=== PATIENT | male | born 1945 | race Asian ===

== ENCOUNTER 2019-12-18 09:08 | Inpatient (IN) | payer OTHER ==
--- NOTE | 2019-12-18 09:59 | RAD REPORT ---
EXAM DESCRIPTION: CT - Ct Stroke Brain Wo Cont - 12/18/2019 9:48 am CLINICAL HISTORY: Numbness and weakness COMPARISON: None TECHNIQUE: Computed axial tomography of the head was obtained. All CT scans are performed using dose optimization technique as appropriate and may include automated exposure control or mA/KV adjustment according to patient size. FINDINGS: An intracranial bleed is not seen . The ventricles are normal in caliber. No extra-axial fluid collection is noted. Mild to moderate low-density within periventricular, deep and subcortical white matter likely ischemi c changes secondary to small vessel disease Increased density within the left maxillary sinus which is partially calcified may indicate inspissat ed mucus IMPRESSION: No acute intracranial abnormality is seen. If patient's symptoms persist MRI of the bra in would be recommended. Dr Ramirez of the emergency room was notified at 9:52 a.m. December 18, 2019
[2019-12-18 10:04] LABS: Absolute Lymphocytes (CBC) 0.6 K/uL (0.7-4.9); Basophils % 0.3 % (0-1.3); Hematocrit 41.5 % (39.6-49.0); Lymphocytes % 10.2 % (15.3-44.8); MPV 9.5 fL (7.6-11.3); RBC Red Blood Cell Count 4.51 M/uL (4.33-5.43)
[2019-12-18 10:12] LABS: Protime INR 0.99
[2019-12-18 10:28] LABS: Potassium 3.9 mmol/L (3.5-5.1)
--- NOTE | 2019-12-18 10:55 | RAD REPORT ---
EXAM DESCRIPTION: RAD - Chest Single View - 12/18/2019 10:26 am CLINICAL HISTORY: weakness Chest pain. COMPARISON: No comparisons FINDINGS: Portable technique limits examination quality. Emphysematous changes are present throughout the lungs. The heart is upper limit of normal in size. N o displaced fractures. IMPRESSION: Mild COPD.
--- NOTE | 2019-12-18 12:08 | EKG ---
Test Date: 2019-12-18 Test Time: 10:25:54 Alarm Field Technician: BLAYNE MEASUREMENT RESULTS: Intervals: Rate: 76 MT: 156 QRSD: 86 QT: 380 QTc: 427 Flom: P: 60 MT: 156 QRS: 76 T: 62 INTERPRETIVE STATEMENTS: Normal sinus rhythm Early repolarization Normal ECG No previous ECG available for comparison Electronically Signed On 12-18-19 12:08:16 HEEL COVERER MACHINE OPERATOR by Ho Ramesh
--- NOTE | 2019-12-18 12:14 | RAD REPORT ---
EXAM DESCRIPTION: MRI - Brain W/Wo Cont - 12/18/2019 11:59 am CLINICAL HISTORY: Numbness COMPARISON: December 18, [address] TECHNIQUE: Axial, sagittal, and coronal magnetic images of the brain were obtained. 20 cc MultiHance administered intravenously FINDINGS: 14 x 4 millimeter area of abnormal signal is present within the left aspect of the dejuan co nsistent with an acute infarction Mild to moderate signal within periventricular, deep and subcortical white matter likely ischemic nigel nges secondary to small vessel disease. The ventricles are normal in caliber. No abnormal enhancement within the brain is seen. An extra-axial fluid collection is not noted. Fluid within the sinuses/mastoids is not seen IMPRESSION: 14 x 4 millimeter acute infarct left aspect of the dejuan. Exam discussed with Dr Ramirez in the Emergency Room 12:09 p.m. December 18, 2019
--- NOTE | 2019-12-18 12:15 | RAD REPORT ---
EXAM DESCRIPTION: MRI - MRA Neck W/Wo Cont - 12/18/2019 11:59 am CLINICAL HISTORY: Numbness COMPARISON: None. TECHNIQUE: Magnetic resonance angiogram of the neck was performed. Twenty cc MultiHance was administ ered intravenously. 3D MIPS reconstruction performed FINDINGS: The common carotid, internal carotid and external carotid arteries do not demonstrate a si gnificant stenosis. An aneurysm is not seen. The vertebral arteries are codominant without visualization of an abnormality. IMPRESSION: Unremarkable MRA neck NASCET criteria used. Mild 0-49% stenosis Moderate 50-69% stenosis Severe 70-99% stenosis
--- NOTE | 2019-12-18 12:18 | RAD REPORT ---
EXAM DESCRIPTION: MRI - MRA Head Wo Cont - 12/18/2019 11:59 am CLINICAL HISTORY: Numbness COMPARISON: None. TECHNIQUE: Magnetic resonance angiogram was performed. 3D MIPS reconstruction performed FINDINGS: The anterior cerebral, middle cerebral, right posterior cerebral, distal internal carotid and basilar arteries do not demonstrate a significant stenosis. Area of narrowing involves a branch to the left posterior cerebral artery which probably is chronic An aneurysm is not displayed. IMPRESSION: No acute abnormality is displayed
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
--- NOTE | 2019-12-18 13:34 | EDPHYS ---
Physician Documentation [facility] Name: Gerry Holguin Age: 74 yrs Sex: Male : 1945 Arrival Date: 12/18/2019 Time: 09:12 Bed 4 Private MD: Cecilio Humphrey T ED Physician Ramy Ramirez HPI: 12/18 17:23 This 74 yrs old Male presents to ER via Wheelchair with complaints of S/S of kdr Possible Stroke. 17:23 The patient's problem is reported as dysphasia, slow speech, weakness, in the right kdr upper extremity, in the right lower extremity. Onset: The symptoms/episode began/occurred 3:00 AM Wednesday. Duration: This was a single incident, Improving. Context: the episode(s) was witnessed, by no one, symptoms became apparent upon waking, occurred at home, occurred while the patient was asleep. The symptoms are alleviated by nothing. The symptoms are aggravated by nothing. Associated signs and symptoms: Pertinent positives: ataxia, dizziness, lightheadedness, weakness, Pertinent negatives: abdominal pain, agitation, ataxia, diaphoresis, shortness of breath, tingling. Severity of symptoms: At their worst the symptoms were mild in the emergency department the symptoms have improved markedly. Patient's baseline: Neuro: alert and fully oriented, Motor: no deficits, Ambulation: walks without assistance, Speech: normal for age. The patient has not experienced similar symptoms in the past. The patient has not recently seen a physician. The patient has been taking an aspirin every 3-4 hours since initial onset of his symptoms. Historical: - Allergies: 10:09 No Known Allergies; ca1 - Home Meds: 10: metformin 500 mg Oral tab 1 tab 2 times per day [Active]; ca1 - PMHx: 10:09 Diabetes - NIDDM; ca1 - PSHx: 10:09 Appendectomy; ca1 - Immunization history:: Adult Immunizations up to date, Pneumococcal vaccine is up to date, Flu vaccine is up to date. - Coronavirus screen:: The patient has NOT traveled to [place] in the past 14 days. The patient has NOT had contact with known/suspected case of Coronavirus?. - Social history:: Smoking status: Patient denies any tobacco usage or history of. - Ebola Screening: : Patient negative for fever greater than or equal to 101.5 degrees Fahrenheit, and additional compatible Ebola Virus Disease symptoms Patient denies exposure to infectious person Patient denies travel to an Ebola-affected area in the 21 days before illness onset No symptoms or risks identified at this time. ROS: 17:23 Constitutional: Negative for fever, chills, and weight loss, Eyes: Negative for injury, kdr pain, redness, and discharge, ENT: Negative for injury, pain, and discharge, Neck: Negative for injury, pain, and swelling, Cardiovascular: Negative for chest pain, palpitations, and edema, Respiratory: Negative for shortness of breath, cough, wheezing, and pleuritic chest pain, Abdomen/GI: Negative for abdominal pain, nausea, vomiting, diarrhea, and constipation, Back: Negative for injury and pain, : Negative for injury, bleeding, discharge, and swelling, MS/Extremity: Negative for injury and deformity, Skin: Negative for injury, rash, and discoloration, Psych: Negative for depression, anxiety, suicide ideation, homicidal ideation, and hallucinations, Allergy/Immunology: Negative for hives, rash, and allergies, Endocrine: Negative for neck swelling, polydipsia, polyuria, polyphagia, and marked weight changes, Hematologic/Lymphatic: Negative for swollen nodes, abnormal bleeding, and unusual bruising. 17:23 Neuro: Positive for altered mental status, dizziness, speech changes, weakness, Negative for loss of consciousness, syncope, near syncope. Exam: 17:23 Radiologist reports: Negative head CT, Acute infarct of left dejuan kdr 17:23 Constitutional: This is a well developed, well nourished patient who is awake, alert, and in no acute distress. Head/Face: Normocephalic, atraumatic. Vital Signs: 09:21 BP 165 / 76; Pulse 92; Resp 16 S; Pulse Ox 98% on R/A; Weight 68.04 kg (R); Height 5 ca1 ft. 7 in. (170.18 cm) (R); Pain 0/10; 10:18 BP 148 / 86; Pulse 79; Resp 16; Pulse Ox 97% ; sv 10:45 BP 142 / 87; Pulse 76; Resp 14; Pulse Ox 97% on R/A; ca1 12:01 BP 156 / 83; Pulse 76; Resp 16 S; Pulse Ox 99% on R/A; ca1 12:38 BP 141 / 82; Pulse 72; Resp 16; Pulse Ox 99% ; sv 13:23 BP 153 / 64; Pulse 84; Resp 22; Pulse Ox 100% on R/A; ca1 09:21 Body Mass Index 23.49 (68.04 kg, 170.18 cm) ca1 NIH Stroke Scale Scores: 10:13 NIHSS Score: 1 ca1 MDM: 13:32 Patient medically screened. kdr 17:37 Data reviewed: vital signs, nurses notes, old medical records, radiologic studies. kdr Counseling: I had a detailed discussion with the patient and/or guardian regarding: the historical points, exam findings, and any diagnostic results supporting the discharge/admit diagnosis, lab results, radiology results, the need for further work-up and treatment in the hospital. 12/18 09:32 Order name: Basic Metabolic Panel; Complete Time: 12:37 kdr 12/18 09:32 Order name: CBC with Diff; Complete Time: 12:37 [facility] 12/18 09:32 Order name: Protime (+inr) kdr 12/18 09:32 Order name: Ptt, Activated kdr 12/18 09:32 Order name: CT Stroke Brain w/o Contrast; Complete Time: 12:37 kdr 12/18 10:23 Order name: Glucose, Ancillary Testing; Complete Time: 12:37 EDDE 12/18 09:32 Order name: Stroke CXR 1 View; Complete Time: 12:37 kdr 12/18 09:32 Order name: EKG; Complete Time: 09:34 kdr 12/18 09:32 Order name: Accucheck; Complete Time: 10:12 [facility] 12/18 09:32 Order name: Cardiac monitoring; Complete Time: 09:58 [facility] 12/18 10:42 Order name: MRA Head Wo Cont EDMS 12/18 10:46 Order name: Brain W/Wo Cont EDMS 12/18 10:46 Order name: MRA Neck W/Wo Cont EDMS 12/18 09:32 Order name: EKG - Nurse/Tech; Complete Time: 10:04 kdr 12/18 09:32 Order name: IV Saline Lock; Complete Time: 09:59 kdr 12/18 09:32 Order name: Labs collected and sent; Complete Time: 09:59 kdr 12/18 09:32 Order name: NPO; Complete Time: 09:59 kdr 12/18 09:32 Order name: O2 Per Protocol; Complete Time: 09:58 kdr 12/18 09:32 Order name: O2 Sat Monitoring; Complete Time: :58 kdr 12/18 09:32 Order name: Stroke Swallow Screen; Complete Time: 10:04 kdr Administered Medications: No medications were administered Point of Care Testing: Blood Glucose: 10:13 Blood Glucose: 219 mg/dL; ca1 Ranges: Critical Glucose Levels:Adult <50 mg/dl or >400 mg/dl <40 mg/dl or >180 mg/dl Disposition: 12/18/19 13:32 Hospitalization ordered by Olaf Alberto for Inpatient Admission. Preliminary diagnosis is Left Dejuan CVA - acute (>24 hrs). - Bed requested for Telemetry/MedSurg (Inpatient). - Status is Inpatient Admission. ca1 - Condition is Fair. - Problem is new. - Symptoms have improved. NIH Stroke Scale - NIH Stroke Score Date: 12/18/2019 Time: 10:13 Total Score = 1 1a. Level of Consciousness (LOC) - 0(Alert) 1b. Level of Consciousness (LOC) (Year \T\ Age) - 0(Both) 1c. LOC Commands (Open \T\ Closes Eyes/Sustainable Design Coordinator) - 0(Both) 2. Best Gaze (Lateral Gaze Paresis) - 0(Normal) 3. Visual Field Loss - 0(No visual loss) 4. Facial Palsy - 0(Normal) 5a. Left Arm: Motor (10-second hold) - 0(No drift) 5b. Right Arm: Motor (10-second hold) - 0(No drift) 6a. Left Leg: Motor (5-second hold - always test supine) - 0(No drift) 6b. Right Leg: Motor (5-second hold - always test supine) - 1(Drift) 7. Limb Ataxia (finger/nose \T\ heel/madrigal - test with eyes open) - 0(Absent) 8. Sensory Loss (pinprick arms/legs/face) - 0(Normal) 9. Best Language: Aphasia (description/naming/reading) - 0(No aphasia) 10. Dysarthria (speech clarity - read or repeat words) - 0(Normal) 11. Extinction and Inattention (visual/tactile/auditory/spatial/personal) - 0(No abnormality) Initials: ca1 Signatures: Dispatcher [employer] Marci Iqbal RN RN dw Rittger, Kevin, MD MD kdr Trisha Abarca RN RN ca1 Corrections: (The following items were deleted from the chart) 10:40 09:54 MR STROKE PROTOCOL+MRI.RAD.BRZ ordered. EDMS EDMS 13:52 13:32 Hospitalization Ordered by Olaf Alberto MD for Inpatient Admission. dw Preliminary diagnosis is Left Dejuan CVA - acute (>24 hrs). Bed requested for Telemetry/MedSurg (Inpatient). Status is Inpatient Admission. Condition is Fair. Problem is new. Symptoms have improved. kdr 14:54 13:52 12/18/2019 13:32 Hospitalization Ordered by Olaf Alberto MD for Inpatient ca1 Admission. Preliminary diagnosis is Left Dejuan CVA - acute (>24 hrs). Bed requested for Telemetry/MedSurg (Inpatient). Status is Inpatient Admission. Condition is Fair. Problem is new. Symptoms have improved. dw
--- NOTE | 2019-12-18 13:57 | P.HP ---
Certification for Inpatient Patient admitted to: Inpatient With expected LOS: >2 Midnights Patient will require the following post-hospital care: Home Health Services Practitioner: I am a practitioner with admitting privileges, knowledge of patient current condition, hospital course, and medical plan of care. Services: Services provided to patient in accordance with Admission requirements found in Title 42 Section 412.3 of the Code of Federal Regulations Patient History Date of Service: 12/18/19 Primary Care Provider: Dr. Humphrey Reason for admission: Acute CVA History of Present Illness: Patient is a 74-year-old male with past medical history of diabetes non-insulin- requiring nonsmoker comes in for stroke. Patient was in his usual state of health until 3:00 a.m. the day prior to yesterday and had sudden onset of altered speech word-finding difficulty weakness in his right arm and leg mild headache. Patient states that he fell on the ground on a carpeted floor did not hit his head he was able to get himself up. Patient took some aspirin and awaited till today to come in and seek medical treatment. He called his PCPs office and was instructed to go to the ER immediately. Per patient's his speech is better however still has significant amount of speech abnormality. In the ER his workup revealed negative CT brain however MRI of the brain showed 14 x 4 mm left dejuan CVA. Patient was referred for admission. When seen in the ER he was awake alert oriented x3 not in any acute distress. Home medications list reviewed: Yes - Past Medical/Surgical History Diabetic: Yes -: DM2 -: Appendectomy - Family History Father -: Stroke - Social History Smoking Status: Never smoker Alcohol use: Yes Place of Residence: Home Review of Systems 10-point ROS is otherwise unremarkable Neurological: As per HPI Physical Examination - Vital Signs Blood Pressure: 165/76 Pulse: 92 Respirations: 16 Pulse Ox (%): 98 - Physical Exam General: Alert, In no apparent distress, Oriented x3, Other (ill appearing male) HEENT: Atraumatic, PERRLA, Mucous membr. moist/pink, EOMI, Sclerae nonicteric Neck: Supple, 2+ carotid pulse no bruit, Without JVD or thyroid abnormality Respiratory: Clear to auscultation bilaterally, Normal air movement Cardiovascular: No edema, Normal pulses, Regular rate/rhythm, Normal S1 S2 Gastrointestinal: Normal bowel sounds, Soft and benign, Non-distended, No tenderness Musculoskeletal: No clubbing, No erythema, No tenderness Integumentary: No rashes, No erythema Neurological: Normal gait, Normal strength at 5/5 x4 extr, Normal tone, Cranial nerves 3-12 intact, Normal affect, Abnormal speech - Studies Laboratory Data (last 24 hrs) 12/18/19 09:55: PT 11.7, INR 0.99, APTT 29.6 12/18/19 09:55: WBC 5.5, Hgb 14.2, Hct 41.5, Plt Count 153 12/18/19 09:55: Sodium 136, Potassium 3.9, BUN 15, Creatinine 1.24, Glucose 258 H Imagings Data: MRI of brain IMPRESSION: 14 x 4 millimeter acute infarct left aspect of the dejuan EXAM DESCRIPTION: MRI - MRA Head Wo Cont - 12/18/2019 11:59 am CLINICAL HISTORY: Numbness COMPARISON: None. TECHNIQUE: Magnetic resonance angiogram was performed. 3D MIPS reconstruction performed FINDINGS: The anterior cerebral, middle cerebral, right posterior cerebral, distal internal carotid and basilar arteries do not demonstrate a significant stenosis. Area of narrowing involves a branch to the left posterior cerebral artery which probably is chronic An aneurysm is not displayed. IMPRESSION: No acute abnormality is displayed Assessment and Plan - Problems (Diagnosis) (1) Acute CVA (cerebrovascular accident) Current Visit: Yes Status: Acute (2) DM2 (diabetes mellitus, type 2) Current Visit: Yes Status: Acute Qualifiers: Diabetes mellitus penitentiary insulin use: without ferry terminal agent use Diabetes mellitus complication status: with hyperglycemia Qualified Code(s): E11.65 - Type 2 diabetes mellitus with hyperglycemia - Plan Will admit patient for further workup for his acute CVA. Obtain echocardiogram Carotid artery ultrasound Neurology consultation. I spoke with Dr. Brewster. Patient has not been on aspirin on a daily basis. Will start on aspirin and folic acid. Statin Patient took 10 81 mg aspirins yesterday. He has a risk of bleeding post CVA. Will repeat CT scan without contrast in a.m. to rule out bleed. Neurochecks PT OT and speech eval Patient has minimal weakness will likely benefit from home health upon discharge DVT prophylaxis with Lovenox For his diabetes Will continue sliding-scale insulin and check hemoglobin A1c. Discharge Plan: Home Plan to discharge in: 48 Hours - Advance Directives Does patient have a Living Will: No Does patient have a Durable POA for Healthcare: No - Code Status/Comfort Care Code Status Assessed: Yes
[2019-12-18 14:51] VITALS: BMI 23.5
[2019-12-18] MEDS ORDERED: ACETAMINOPHEN 500 MG TAB PO PRN (14:57)
[2019-12-18] MEDS ORDERED: ONDANSETRON 4 MG/2 ML VIAL IV PRN (14:57)
[2019-12-18] MEDS: NA CHLORIDE 0.9% 1,000 ML IV SCH (15:44)
[2019-12-18] MEDS: ENOXAPARIN 40 MG/0.4 ML SQ SCH (15:46)
[2019-12-18] MEDS: INSULIN -REGULAR HUMAN 50 UNIT/0.5 ML ML SQ SCH ×2 (17:30→21:00)
--- NOTE | 2019-12-18 17:53 | RAD REPORT ---
EXAM DESCRIPTION: US - CP - 12/18/2019 5:43 pm CLINICAL HISTORY: CVA COMPARISON: MRA Neck W/Wo Cont dated 12/18/2019; Brain W/Wo Cont dated 12/18/2019; MRA Head Wo Cont da kaley 12/18/2019 TECHNIQUE: Real-time sonographic evaluation of both carotid systems was performed. Doppler interroga tion was performed with waveform tracing bilaterally. FINDINGS: Normal high resistance waveforms are noted in both external carotid arteries. The common c arotid arteries and internal carotid arteries show normal low resistance waveforms. Small focal hard plaque right carotid bulb. Peak systolic and end diastolic velocity values and the I CA/CCA ratios are in the non-hemodynamically significant range. Antegrade flow seen in both vertebral arteries. IMPRESSION: Small focal hard plaque right carotid bulb. No evidence of a hemodynamically significant stenosis.
[2019-12-18] MEDS ORDERED: ATORVASTATIN 20 MG TAB PO SCH (21:00)
[2019-12-18] MEDS ORDERED: ATORVASTATIN 40 MG TAB PO SCH (21:00)
[2019-12-19] MEDS: NA CHLORIDE 0.9% 1,000 ML IV SCH (05:19)
[2019-12-19 06:17] LABS: Absolute Lymphocytes (CBC) 1.1 K/uL (0.7-4.9); Basophils % 0.9 % (0-1.3); Lymphocytes % 21.1 % (15.3-44.8); MPV 9.4 fL (7.6-11.3); RBC Red Blood Cell Count 4.36 M/uL (4.33-5.43)
[2019-12-19 06:42] LABS: Albumin 3.5 g/dL (3.4-5.0); Bilirubin Total 0.8 mg/dL (0.2-1.0); Magnesium 2.4 mg/dL (1.8-2.4); Phosphorus 2.8 mg/dL (2.5-4.9); Potassium 4.4 mmol/L (3.5-5.1); Protein, Total 6.6 g/dL (6.4-8.2)
--- NOTE | 2019-12-19 06:47 | RAD REPORT ---
EXAM DESCRIPTION: CT - Head Brain Wo Cont - 12/19/2019 5:33 am CLINICAL HISTORY: acute cva, rule out post CVA bleed COMPARISON: Ct Stroke Brain Wo Cont dated 12/18/2019; Brain W/Wo Cont dated 12/18/2019 TECHNIQUE: All CT scans are performed using dose optimization technique as appropriate and may inclu de automated exposure control or mA/KV adjustment according to patient size. FINDINGS: No intracranial hemorrhage, hydrocephalus or extra-axial fluid collection.Mild generalized brain atrophy is present with mild periventricular and deep white matter chronic microvascular ische tsering changes.Small area of diminished density is seen in the left dejuan correlating to the site of rece ntly diagnosed infarct. No hemorrhagic conversion seen. No midline shift. The paranasal sinuses and mastoids are clear. The calvarium is intact. IMPRESSION: No acute intracranial abnormality. Recently diagnosed left pontine infarct shows mild h ypodensity without evidence hemorrhage.
[2019-12-19] MEDS: INSULIN -REGULAR HUMAN 50 UNIT/0.5 ML ML SQ SCH ×2 (07:30→12:08)
[2019-12-19] MEDS: ENOXAPARIN 40 MG/0.4 ML SQ SCH (08:22)
[2019-12-19] MEDS ORDERED: FOLIC ACID 1 MG TABLET PO SCH (09:00)
[2019-12-19] MEDS ORDERED: ASPIRIN EC 81 MG TAB PO SCH (09:00)
--- NOTE | 2019-12-19 11:06 | P.DS ---
Admission Date: 12/18/19 Discharge Date: 12/19/19 Primary Care Provider: Dr. Humphrey Disposition: DC HOME/HOME HEALTH CARE Discharge Condition: GOOD Reason for Admission: Acute CVA Consultations: Neurology-Dr. Brewster Procedures: Brain MRI: FINDINGS: 14 x 4 millimeter area of abnormal signal is present within the left aspect of the dejuan consistent with an acute infarction Mild to moderate signal within periventricular, deep and subcortical white matter likely ischemic changes secondary to small vessel disease. The ventricles are normal in caliber. No abnormal enhancement within the brain is seen. An extra-axial fluid collection is not noted. Fluid within the sinuses/mastoids is not seen IMPRESSION: 14 x 4 millimeter acute infarct left aspect of the dejuan Brain MRA: FINDINGS: The anterior cerebral, middle cerebral, right posterior cerebral, distal internal carotid and basilar arteries do not demonstrate a significant stenosis. Area of narrowing involves a branch to the left posterior cerebral artery which probably is chronic An aneurysm is not displayed. IMPRESSION: No acute abnormality is displayed Neck MRA: FINDINGS: The common carotid, internal carotid and external carotid arteries do not demonstrate a significant stenosis. An aneurysm is not seen. The vertebral arteries are codominant without visualization of an abnormality. IMPRESSION: Unremarkable MRA neck Carotid Doppler: FINDINGS: Normal high resistance waveforms are noted in both external carotid arteries. The common carotid arteries and internal carotid arteries show normal low resistance waveforms. Small focal hard plaque right carotid bulb. Peak systolic and end diastolic velocity values and the ICA/CCA ratios are in the non-hemodynamically significant range. Antegrade flow seen in both vertebral arteries. IMPRESSION: Small focal hard plaque right carotid bulb. No evidence of a hemodynamically significant stenosis. Medical Problem List: Dysarthria, right-sided weakness secondary to acute CVA to the left aspect of the dejuan Hypertension Diabetes mellitus type 2 with hyperglycemia non insulin-dependent Hyperlipidemia Brief History of Present Illness: 74-year-old [place] male with history of diabetes. Patient presented with dysarthria and right-sided weakness. This had presented the day before. Patient had MRI showing acute CVA to the left dejuan. Patient was admitted for further evaluation and treatment. Hospital Course: Patient presented with dysarthria and right-sided weakness. Patient found to have acute CVA to the left aspect of the dejuan. Patient had presented with symptoms for more than a day. Patient required aspirin, Lipitor and DVT prophylaxis. His symptoms have significantly improved. Patient almost to his baseline. Patient has done well with physical therapy. Neurology was consulted for further recommendation. Case discussed with Neurology. Will continue with current medications. At discharge patient will continue with aspirin 81 mg daily, folic acid 1 mg daily, Lipitor 40 mg daily and lisinopril 10 mg daily. Recommend follow up with neurology in 2-4 weeks to monitor his progress. Prior to discharge home health and physical therapy will be arranged. Patient found to have elevated blood pressure. Patient was started on lisinopril 10 mg daily. Recommend to maintain blood pressure around 140-150 systolic over the next week. Then thereafter medication can be adjusted for better blood pressure control. This can be done with the help of his PCP. Patient with diabetes mellitus type 2 with hyperglycemia. Patient non insulin dependent. Patient may continue with metformin 500 mg 1 pill twice daily. Recommend to maintain blood sugar less than 140 fasting and less than 200 after meals. Further adjustment can be done by his PCP. Patient has been started on Lipitor 40 mg daily for CVA prevention. Recommend to recheck fasting lipid panel in 4-6 weeks to monitor his progress. Vital Signs/Physical Exam: Temp Pulse Resp BP Pulse Ox 98.3 F 84 16 169/86 H 98 12/19/19 08:00 12/19/19 10:19 12/19/19 08:00 12/19/19 10:19 12/19/19 08:00 General: Alert, In no apparent distress, Oriented x3, Cooperative HEENT: Atraumatic Neck: Supple Respiratory: Clear to auscultation bilaterally, Normal air movement Cardiovascular: Normal pulses, Regular rate/rhythm Gastrointestinal: Normal bowel sounds, Soft and benign, Non-distended, No masses , No rebound, No guarding Musculoskeletal: No erythema, No tenderness, No warmth Integumentary: No tenderness/swelling, No erythema, No warmth, No cyanosis Neurological: Normal speech, Normal strength at 5/5 x4 extr, Normal tone, Normal affect Laboratory Data at Discharge: WBC 5.0 K/uL (4.3-10.9) 12/19/19 05:44 Hgb 14.2 g/dL (13.6-17.9) 12/19/19 05:44 Hct 41.0 % (39.6-49.0) 12/19/19 05:44 Plt Count 143 K/uL (152-406) L 12/19/19 05:44 PT 11.7 SECONDS (9.5-12.5) 12/18/19 09:55 INR 0.99 12/18/19 09:55 APTT 29.6 SECONDS (24.3-36.9) 12/18/19 09:55 Sodium 142 mmol/L (136-145) 12/19/19 05:44 Potassium 4.4 mmol/L (3.5-5.1) 12/19/19 05:44 BUN 15 mg/dL (7-18) 12/19/19 05:44 Creatinine 1.14 mg/dL (0.55-1.3) 12/19/19 05:44 Glucose 134 mg/dL (74-106) H 12/19/19 05:44 Phosphorus 2.8 mg/dL (2.5-4.9) 12/19/19 05:44 Magnesium 2.4 mg/dL (1.8-2.4) 12/19/19 05:44 Total Bilirubin 0.8 mg/dL (0.2-1.0) 12/19/19 05:44 AST 26 U/L (15-37) 12/19/19 05:44 ALT 52 U/L (12-78) 12/19/19 05:44 Alkaline Phosphatase 74 U/L (45-117) 12/19/19 05:44 Triglycerides 213 mg/dL (<150) H 12/19/19 05:44 Cholesterol 149 mg/dL (<200) 12/19/19 05:44 HDL Cholesterol 39 mg/dL (40-60) L 12/19/19 05:44 Cholesterol/HDL Ratio 3.82 12/19/19 05:44 Home Medications: Metformin ER [Glucophage ER*] 1 tab PO BID 12/18/19 Aspirin [Aspirin EC 81 MG] 81 mg PO DAILY #90 tablet. 12/19/19 Atorvastatin Calcium [Lipitor] 40 mg PO BEDTIME #30 tab 12/19/19 Folic Acid 1 mg PO DAILY #90 tablet 12/19/19 lisinopriL [Prinivil*] 10 mg PO DAILY #30 tab 12/19/19 New Medications: Aspirin [Aspirin EC 81 MG] 81 mg PO DAILY #90 tablet. Atorvastatin Calcium [Lipitor] 40 mg PO BEDTIME #30 tab Folic Acid 1 mg PO DAILY #90 tablet lisinopriL [Prinivil*] 10 mg PO DAILY #30 tab Patient Discharge Instructions: 1. Recommend follow up with PCP in 1-2 weeks to follow up this hospitalization. 2. Patient presented with dysarthria and right-sided weakness. Patient found to have acute CVA to the left aspect of the dejuan. Patient had presented with symptoms for more than a day. Patient required aspirin, Lipitor and DVT prophylaxis. His symptoms have significantly improved. Patient almost to his baseline. Patient has done well with physical therapy. Neurology was consulted for further recommendation. At discharge patient will continue with aspirin 81 mg daily, folic acid 1 mg daily, Lipitor 40 mg daily and lisinopril 10 mg daily. Recommend follow up with neurology in 2 -4 weeks to monitor his progress. Prior to discharge home health and physical therapy will be arranged. 3. Patient found to have elevated blood pressure. Patient was started on lisinopril 10 mg daily. Recommend to maintain blood pressure around 140-150 systolic over the next week. Then thereafter medication can be adjusted for better blood pressure control. This can be done with the help of his PCP. 4. Patient with diabetes mellitus type 2 with hyperglycemia. Patient non insulin dependent. Patient may continue with metformin 500 mg 1 pill twice daily. Recommend to maintain blood sugar less than 140 fasting and less than 200 after meals. Further adjustment can be done by his PCP. 5. Patient has been started on Lipitor 40 mg daily for CVA prevention. Recommend to recheck fasting lipid panel in 4-6 weeks to monitor his progress. Diet: ADA Activity: Fall precautions Time spent managing pt's care (in minutes): 55
[2019-12-19 11:59] VITALS: O2SAT 97
[2019-12-19 13:12] VITALS: TEMP 97.9
[2019-12-19 13:41] VITALS: BP 155/82
--- NOTE | 2019-12-19 21:44 | CON ---
Reason For Consultation: Consultation called because of stroke. History Of Present Illness: Mr. Holguin is a 74-year-old patient with ker-slgrzjo-obhrxkrij diabetes dave mariana, who was in his normal state of health until around 3 a.m. on the 18 of December when he awok e to notice difficulty with his speech and right-sided weakness when he tried to ambulate. His arm a nd leg were weak. He actually fell to the ground and had to crawl to get himself to the bathroom. Macy peterson did not seek medical attention and got back to bed. Woke up later that morning, noted that weaknes s was worse, at that point began to take aspirin and actually was taking an aspirin every 3 hours. Munir ventually came into the emergency room once he spoke with his and his called his primary ca re physician. In the meantime, the patient began to improve his speech and right-sided weakness. Sa gardner initially he had just 10% of the function; and over the next several hours, it improved to 60% o r 70% and he believes at this point, at the time of my evaluation, he is about 90% back to strength a nd speech since onset. His head CT scan at his admission shows no acute ischemic or hemorrhagic kunz ge. However, his brain MRI done later on the identified a 14 x 4 mm acute infarct in the left p ons. It should be noted that the patient was not a candidate for tPA as he came into the hospital we ll beyond the 4-1/2-hour window coming in the following day. His arrival time in the emergency room was at 9:12 on the , and his symptoms began previously at 3 a.m. on Wednesday morning, it is a few days previously. He was not taking aspirin regularly at home; and since hospitalization has been pl aced on aspirin, which he did receive a total of 160 mg daily, Lipitor 40 mg at bedtime along with fo lic acid 1 mg daily and Lovenox 40 mg subcutaneously daily. He did have JHONATAN inhibitor and then gluco se sliding scale. Past Medical History: As indicated. Allergies: NO KNOWN DRUG ALLERGIES. Surgical History: Appendectomy. Family History: Noncontributory. Review of Systems: He denies any recent fevers, chills, nausea, vomiting, myalgias, arthralgias, headache, weight change , rash, psychiatric complaints, gastrointestinal issues, or genitourinary issues. Physical Examination: Vital Signs: Blood pressure 135/82 to a high of 188/84, pulse 87 to 97, respiratory rate 14 to 18, t emperature 97.9, oxygen saturation 97% on room air. Weight 150 pounds, height 5 feet 7 inches, BMI 2 3.5. General: Mr. Holguin is resting in bed. He is in no acute distress. He is normocephalic, atraumatic. Sclerae anicteric. Oropharynx is moist and pink. Neck: Supple. Chest: Clear. Heart: Regular. Extremities: No edema or cyanosis. Neurologic: He is alert and oriented to situation, place, time, person. Cranial nerves from 2 throu gh 12 show subtle decrease of the right nasolabial fold, but he has good excursions and smiling. Fac e is intact otherwise to sensation; and again, visual frederick, hearing, and tongue and palate are all unremarkable. Motor examination in the right upper extremity is 5-/5, proximal and distal weakness; in left side, where he is strong, 5/5. In the right lower extremity, 5-/5 proximally and distally, o n the left side 5/5. Sensory exam intact to light touch, pinprick, temperature in the right and left arm. Coordination intact in the upper and lower extremities. Gait, he has a slight tendency to hav e a right leg circumduction gait, but otherwise is very stable, ambulated over 250 feet with no one h olding onto him and he actually did not use a rolling walker. Laboratory Studies: Complete blood count with differential is essentially unremarkable. Coagulation panel is normal. Chemistries on admission showed glucose ranged from 128 to 108, triglycerides elev ated at 213, HDL cholesterol low at 39, LDL cholesterol at 67, total cholesterol 149, cholesterol HDL ratio 3.82. Liver function studies are normal. His electrocardiogram shows normal sinus rhythm wit h early repolarization. His carotid artery ultrasound showed small focal hard plaque in the right ca rotid bulb, no evidence of hemodynamically significant stenosis. A repeat head CT scan done 24 hours after admission showed no hemorrhagic conversion in the pontine stroke region. Assessment: Mr. Holguin is a 74-year-old patient with likely hypertension, diabetes mellitus, not on asp irin, who comes in with a pontine stroke and some right-sided deficits with difficulty with his artic ulation. He has improved significantly despite the presence of a stroke and is now on aspirin, Plavi x, and statin along with folic acid. He is on Prinivil. Plan: Patient will be discharged home. Follow up in Dr. Brewster's clinic in 1 month and he was qiana d of the importance of regular exercise, hydration, diet modification, and being compliant with medic ations to help reduce risk of additional strokes or myocardial infarction. He will follow up in clin ic within a month. RAY/QING Voice ID: [id number] Report ID: [id number]
[2019-12-20] MEDS ORDERED: lisinopriL 10 MG TAB PO SCH (09:00)
== END 2019-12-19 14:13 | disposition home health service (06) | DRG 65 ==
LOC: ER 09:08 → ERHOLD 13:45 → 4TH 14:22
PROVIDERS: ADMIT Family Medicine; ATTEND Family Medicine
DX: I63.9 Cerebral infarction, unspecified (principal); G81.91 Hemiplegia, unspecified affecting right dominant side; R47.1 Dysarthria and anarthria; R29.701 NIHSS score 1; E11.9 Type 2 diabetes mellitus without complications
CPT/HCPCS: 36415; 70450; 70544; 70549; 70553; 71045; 80048; 80053; 80061; 82947; 83735; 84100; 85025; 85610; 85730; 92610; 93005; 93880; 94760; 97112; 97116; 97161; 99285; A9577; J1650; J7030